=== PATIENT | male | born 1990 | race African-American/Black ===

== ENCOUNTER 2020-10-31 07:15 | Emergency (ER) | payer OTHER, SELFPAY ==
[2020-10-31] MEDS ORDERED: Iopamidol-370 76% 500 ML 1 ML ONE (09:20)
== END 2020-10-31 09:54 | disposition home or self-care (01) ==
LOC: ERS 07:15
DX: S40.212A Abrasion of left shoulder, initial encounter (principal); E78.5 Hyperlipidemia, unspecified; V03.99XA Pedestrian with other conveyance injured in collision with car, pick-up truck or van, unspecified whether traffic or nontraffic accident, initial encounter
CPT/HCPCS: 70450; 71260; 72125; 74177; G0390; Q9967